=== PATIENT | female | born 1935 | race Caucasian/White ===

== ENCOUNTER → 2017-01-18 | Outpatient (CLI) | payer OTHER ==
[~2017-01-18] MED LIST: IBUP200C10 PO; MULT-775 OR; PANT40TA2 PO; SUCR1TAB38 OR; TRIA75TA55 PO
[2017-01-18 08:58] LABS: Urine RBC None Seen /hpf (0 - 4)
[2017-01-18 09:11] LABS: Urine Bilirubin Negative (Negative); Urine Blood Negative /uL (Negative); Urine Color Yellow (Yellow); Urine Glucose Normal (Normal); Urine Ketone Negative (Negative); Urine Nitrite Negative (Negative); Urine Squamous Epithelial Cell FEW /hpf (<5); Urine Urobilinogen Normal (Negative)
[2017-01-18 09:14] LABS: Basophils # (auto) 0 uL; Basophils % (auto) 0.4 % (0.0-2.0); Eosinophils # (auto) 0.2 uL; Eosinophils % (auto) 4.2 % (0.0-7.0); Hematocrit 39.6 % (36.0-46.0); Hemoglobin 13.5 g/dL (12.2-16.2); Lymphocytes # (auto) 1.5 uL; Lymphocytes % (auto) 28.9 % (10.0-50.0); Mean Corpuscular Hemoglobin 30.2 pg (28.0-32.0); Mean Corpuscular Hgb Conc. 34.2 g/dL (32.0-36.0); Mean Corpuscular Volume 88.3 fL (80.0-100.0); Mean Platelet Volume 7.8 fL (7.4-10.4); Monocytes # (auto) 0.3 uL; Monocytes % (auto) 6.4 % (0.0-12.0); Neutrophils # (auto) 3.1 uL; Neutrophils % (auto) 60.1 % (37.0-80.0); Platelet Count (auto) 275 10^3/uL (140-450); Red Cell Distribution Width 13.9 % (11.6-16.0); White Blood Cell 5.2 10^3/uL (4.4-10.8)
[2017-01-18 09:27] LABS: Albumin 3.4 g/dL (3.4-5.0); Calcium 8.7 mg/dL (8.5-10.1); Potassium 4.3 mmol/L (3.5-5.1); Total Protein 6.4 g/dL (6.4-8.2)
== END | disposition home or self-care (01) ==
LOC: LAB 08:19
PROVIDERS: ATTEND Internal Medicine
DX: E55.9 Vitamin D deficiency, unspecified (principal); I10 Essential (primary) hypertension; E78.2 Mixed hyperlipidemia
CPT/HCPCS: 36415; 80053; 80061; 81001; 82306; 84443; 85025

== ENCOUNTER → 2017-05-30 | Outpatient (CLI) | payer OTHER ==
[2017-05-31 09:16] LABS: Temperature: 22.2 C (20.0-25.0)
== END | disposition home or self-care (01) ==
LOC: LAB 08:27
PROVIDERS: ATTEND Psychiatry & Neurology Neurology
DX: M79.604 Pain in right leg (principal); R20.2 Paresthesia of skin
CPT/HCPCS: 36415; 82607; 82746; 82951; 84155; 84165

== ENCOUNTER → 2017-09-30 | Outpatient (CLI) | payer OTHER ==
[2017-09-30 08:28] LABS: Basophils # (auto) 0.1 uL; Eosinophils # (auto) 0.1 uL; Eosinophils % (auto) 2.2 % (0.0-7.0); Hematocrit 40.6 % (36.0-46.0); Lymphocytes # (auto) 1.4 uL; Lymphocytes % (auto) 21.6 % (10.0-50.0); Mean Corpuscular Hemoglobin 31.7 pg (28.0-32.0); Mean Corpuscular Hgb Conc. 34.5 g/dL (32.0-36.0); Mean Corpuscular Volume 91.8 fL (80.0-100.0); Mean Platelet Volume 7.8 fL (6.9-10.8); Monocytes # (auto) 0.4 uL; Monocytes % (auto) 6.5 % (0.0-12.0); Neutrophils # (auto) 4.6 uL; Neutrophils % (auto) 68.7 % (37.0-80.0); Platelet Count (auto) 242 10^3/uL (140-450); Red Cell Distribution Width 12.4 % (11.8-14.3); White Blood Cell 6.7 10^3/uL (4.4-10.8)
[2017-09-30 10:33] LABS: Albumin 3.6 g/dL (3.4-5.0); BUN/Creatinine Ratio 32.9; Bilirubin, Total 0.6 mg/dL (0.2-1.0); Calcium 8.9 mg/dL (8.5-10.1); Total Protein 7.1 g/dL (6.4-8.2)
== END | disposition home or self-care (01) ==
LOC: LAB 07:17
PROVIDERS: ATTEND Physician Assistant
DX: Z01.818 Encounter for other preprocedural examination (principal)
CPT/HCPCS: 36415; 80053; 85025

== ENCOUNTER → 2018-01-04 | Outpatient (CLI) | payer OTHER ==
[~2018-01-04] MED LIST changes: +IBUP1CAP5 PO; -IBUP200C10 PO
== END | disposition home or self-care (01) ==
LOC: RT 08:41
PROVIDERS: ATTEND Internal Medicine Pulmonary Disease
DX: J43.9 Emphysema, unspecified (principal)
CPT/HCPCS: 94010

== ENCOUNTER → 2018-01-20 | Outpatient (CLI) | payer OTHER ==
[2018-01-20 09:19] LABS: Basophils # (auto) 0 uL; Basophils % (auto) 0.2 % (0.0-2.0); Eosinophils # (auto) 0.2 uL; Eosinophils % (auto) 2.7 % (0.0-7.0); Hemoglobin 14.5 g/dL (12.2-16.2); Lymphocytes # (auto) 1.4 uL; Lymphocytes % (auto) 25.1 % (10.0-50.0); Mean Corpuscular Hemoglobin 31.4 pg (28.0-32.0); Mean Corpuscular Hgb Conc. 34.6 g/dL (32.0-36.0); Mean Corpuscular Volume 90.7 fL (80.0-100.0); Monocytes # (auto) 0.4 uL; Monocytes % (auto) 6.6 % (0.0-12.0); Neutrophils # (auto) 3.7 uL; Neutrophils % (auto) 65.4 % (37.0-80.0); Nucleated Red Blood Cells % 0.1 %; Platelet Count (auto) 228 10^3/uL (140-450); Red Blood Cells 4.63 10^6/uL (4.0-5.20); Red Cell Distribution Width 13.5 % (11.8-14.3); White Blood Cell 5.6 10^3/uL (4.4-10.8)
[2018-01-20 10:21] LABS: BUN/Creatinine Ratio 35.6; Bilirubin, Total 0.7 mg/dL (0.2-1.0); Calcium 8.8 mg/dL (8.5-10.1); Potassium 4.3 mmol/L (3.5-5.1); Total Protein 7.6 g/dL (6.4-8.2)
== END | disposition home or self-care (01) ==
LOC: LAB 08:58
PROVIDERS: ATTEND Physician Assistant
DX: I11.9 Hypertensive heart disease without heart failure (principal); E53.8 Deficiency of other specified B group vitamins; E78.5 Hyperlipidemia, unspecified; E55.9 Vitamin D deficiency, unspecified; E78.4 Other hyperlipidemia
CPT/HCPCS: 36415; 80053; 80061; 82306; 82607; 85025

== ENCOUNTER → 2018-03-21 | Outpatient (CLI) | payer OTHER | END | disposition home or self-care (01) | LOC: LAB 12:22 | PROVIDERS: ATTEND Physician Assistant | DX: D22.5 Melanocytic nevi of trunk (principal); L82.1 Other seborrheic keratosis; D22.62 Melanocytic nevi of left upper limb, including shoulder; I11.9 Hypertensive heart disease without heart failure; E78.5 Hyperlipidemia, unspecified; J43.9 Emphysema, unspecified; E78.00 Pure hypercholesterolemia, unspecified; I12.9 Hypertensive chronic kidney disease with stage 1 through stage 4 chronic kidney disease, or unspecified chronic kidney disease; N18.2 Chronic kidney disease, stage 2 (mild) ==

== ENCOUNTER → 2018-06-20 | Outpatient (CLI) | payer OTHER | END | disposition home or self-care (01) | LOC: LAB 14:14 | PROVIDERS: ATTEND Specialist | DX: N83.291 Other ovarian cyst, right side (principal); R59.9 Enlarged lymph nodes, unspecified; I11.9 Hypertensive heart disease without heart failure; E78.5 Hyperlipidemia, unspecified; E55.9 Vitamin D deficiency, unspecified; I10 Essential (primary) hypertension; Z88.6 Allergy status to analgesic agent | CPT/HCPCS: 82378; 86301; 86304 ==

== ENCOUNTER → 2018-06-23 | Outpatient (CLI) | payer OTHER | END | disposition home or self-care (01) | LOC: LAB 13:58 | PROVIDERS: ATTEND Specialist | DX: R10.9 Unspecified abdominal pain (principal); R10.2 Pelvic and perineal pain | CPT/HCPCS: 36415; 82565; 84520 ==

== ENCOUNTER 2018-07-08 18:05 | Emergency (ER) | payer OTHER ==
[~2018-07-08] VITALS: Ht 154.9 cm; Wt 48.1 kg
[2018-07-08 18:17] VITALS: BP 101/81
[2018-07-08 19:22] LABS: Basophils # (auto) 0 uL; Basophils % (auto) 0.6 % (0.0-2.0); Eosinophils # (auto) 0 uL; Eosinophils % (auto) 0.2 % (0.0-7.0); Hematocrit 38.9 % (36.0-46.0); Hemoglobin 13.5 g/dL (12.2-16.2); Lymphocytes # (auto) 0.4 uL; Lymphocytes % (auto) 7.6 % (10.0-50.0); Mean Corpuscular Hemoglobin 31.7 pg (28.0-32.0); Mean Corpuscular Hgb Conc. 34.8 g/dL (32.0-36.0); Mean Corpuscular Volume 90.8 fL (80.0-100.0); Monocytes # (auto) 0.2 uL; Monocytes % (auto) 4.2 % (0.0-12.0); Neutrophils # (auto) 4.9 uL; Neutrophils % (auto) 87.4 % (37.0-80.0); Nucleated Red Blood Cells % 0.1 %; Platelet Count (auto) 161 10^3/uL (140-450); Red Blood Cells 4.28 10^6/uL (4.0-5.20); Red Cell Distribution Width 12.7 % (11.8-14.3); White Blood Cell 5.6 10^3/uL (4.4-10.8)
[2018-07-08 19:32] LABS: Urine Bacteria FEW /hpf (None Seen); Urine Blood Negative /uL (Negative); Urine Hyaline Cast FEW /lpf (0 - 2); Urine Mucus FEW (None Seen); Urine Specific Gravity 1.023 (1.001-1.035); Urine WBC 2 /hpf (0 - 5)
[2018-07-08 19:41] LABS: Alanine Aminotransferase 25 U/L (13-56); Albumin 3.4 g/dL (3.4-5.0); Alkaline Phosphatase 87 U/L (45-117); Anion Gap 7 (5-15); Aspartate Aminotransferase 22 U/L (15-37); BUN/Creatinine Ratio 15.7; Bilirubin, Total 1.3 mg/dL (0.2-1.0); Blood Urea Nitrogen 16 mg/dL (7-18); Carbon Dioxide 23 mmol/L (21-32); Chloride 104 mmol/L (98-107); GFR African American 67 mL/min; GFR Non-African American 55 mL/min; Glucose 86 mg/dL (74-106); Magnesium 2.5 mg/dL (1.6-2.6); Potassium 3.8 mmol/L (3.5-5.1); Sodium 134 mmol/L (136-145); Total Protein 6.8 g/dL (6.4-8.2)
== END 2018-07-09 01:15 | disposition left against medical advice (07) ==
LOC: ER 18:07
DX: R50.9 Fever, unspecified (principal); R53.1 Weakness; R30.0 Dysuria; Z53.21 Procedure and treatment not carried out due to patient leaving prior to being seen by health care provider
CPT/HCPCS: 36415; 71046; 80053; 81001; 83735; 84484; 85025; 87086; 93005

== ENCOUNTER → 2018-07-18 | Outpatient (CLI) | payer OTHER | END | disposition home or self-care (01) | LOC: LAB 15:00 | PROVIDERS: ATTEND Physician Assistant | DX: C44.92 Squamous cell carcinoma of skin, unspecified (principal) ==

== ENCOUNTER 2018-11-01 06:19 | Inpatient (IN) | payer OTHER | END 2018-11-04 13:35 | disposition home or self-care (01) | LOC: SUR 06:19 → EAST 11:51 → TELE-EAST 11-02 08:50 → EAST 11-02 15:22 | PROC: 0WQF0ZZ Repair Abdominal Wall, Open Approach (ICD-10-PCS; principal; 2018-11-01 07:35) | DX: K43.2 Incisional hernia without obstruction or gangrene (principal); G93.40 Encephalopathy, unspecified; I10 Essential (primary) hypertension ==

== ENCOUNTER → 2019-01-05 | Outpatient (CLI) | payer OTHER ==
[~2019-01-05] MED LIST changes: -IBUP1CAP5 PO; +METO25TA62 PO; +MULT-688 PO; -MULT-775 OR
[2019-01-05 08:25] LABS: Basophils # (auto) 0.1 uL; Basophils % (auto) 1.1 % (0.0-2.0); Eosinophils # (auto) 0.1 uL; Eosinophils % (auto) 2.7 % (0.0-7.0); Hematocrit 38.5 % (36.0-46.0); Hemoglobin 13.2 g/dL (12.2-16.2); Lymphocytes # (auto) 1.4 uL; Lymphocytes % (auto) 26.1 % (10.0-50.0); Mean Corpuscular Hemoglobin 30.8 pg (28.0-32.0); Mean Corpuscular Hgb Conc. 34.2 g/dL (32.0-36.0); Mean Corpuscular Volume 90.1 fL (80.0-100.0); Monocytes # (auto) 0.4 uL; Monocytes % (auto) 6.6 % (0.0-12.0); Neutrophils # (auto) 3.5 uL; Neutrophils % (auto) 63.5 % (37.0-80.0); Platelet Count (auto) 194 10^3/uL (140-450); Red Blood Cells 4.27 10^6/uL (4.0-5.20); Red Cell Distribution Width 13.7 % (11.8-14.3); White Blood Cell 5.5 10^3/uL (4.4-10.8)
[2019-01-05 09:03] LABS: Albumin 3.4 g/dL (3.4-5.0)
[2019-01-05 09:15] LABS: BUN/Creatinine Ratio 32.5; Bilirubin, Total 0.5 mg/dL (0.2-1.0); Calcium 8.5 mg/dL (8.5-10.1); Total Protein 6.6 g/dL (6.4-8.2)
== END | disposition home or self-care (01) ==
LOC: LAB 07:58
PROVIDERS: ATTEND Physician Assistant
DX: Z00.00 Encounter for general adult medical examination without abnormal findings (principal); I11.9 Hypertensive heart disease without heart failure; E78.5 Hyperlipidemia, unspecified; E53.8 Deficiency of other specified B group vitamins; E55.9 Vitamin D deficiency, unspecified; R21 Rash and other nonspecific skin eruption
CPT/HCPCS: 36415; 80053; 80061; 82306; 82607; 85025

== ENCOUNTER → 2019-04-24 | Outpatient (CLI) | payer OTHER | END | disposition home or self-care (01) | LOC: XY 10:14 | PROVIDERS: ATTEND Internal Medicine | DX: R01.1 Cardiac murmur, unspecified (principal) | CPT/HCPCS: 93886 ==

== ENCOUNTER → 2019-11-23 | Outpatient (CLI) | payer OTHER ==
[~2019-11-23] MED LIST changes: -METO25TA62 PO; +METO25TA93 PO
[2019-11-23 14:48] LABS: Basophils # (auto) 0.1 uL; Eosinophils # (auto) 0.1 uL; Eosinophils % (auto) 2.2 % (0.0-7.0); Hematocrit 39.9 % (36.0-46.0); Hemoglobin 13.9 g/dL (12.2-16.2); Lymphocytes # (auto) 1.9 uL; Lymphocytes % (auto) 31.3 % (10.0-50.0); Mean Corpuscular Hemoglobin 31.7 pg (28.0-32.0); Mean Corpuscular Hgb Conc. 34.7 g/dL (32.0-36.0); Mean Corpuscular Volume 91.3 fL (80.0-100.0); Monocytes # (auto) 0.4 uL; Neutrophils # (auto) 3.5 uL; Neutrophils % (auto) 58.5 % (37.0-80.0); Platelet Count (auto) 231 10^3/uL (140-450); Red Blood Cells 4.37 10^6/uL (4.0-5.20); Red Cell Distribution Width 12.5 % (11.8-14.3); White Blood Cell 5.9 10^3/uL (4.4-10.8)
[2019-11-23 15:09] LABS: Cholesterol 235 mg/dL (< 200); HDL Cholesterol 75 mg/dL (40-59); LDL Cholesterol 137 mg/dL (< 100); Triglycerides 92 mg/dL (< 150)
== END | disposition home or self-care (01) ==
LOC: LAB 14:31
PROVIDERS: ATTEND Physician Assistant
DX: J44.9 Chronic obstructive pulmonary disease, unspecified (principal); I10 Essential (primary) hypertension; E78.5 Hyperlipidemia, unspecified; E55.9 Vitamin D deficiency, unspecified
CPT/HCPCS: 36415; 80061; 82306; 85025

== ENCOUNTER → 2020-02-05 | Outpatient (CLI) | payer OTHER | END | disposition home or self-care (01) | LOC: LAB 15:00 | PROVIDERS: ATTEND Physician Assistant | DX: D22.9 Melanocytic nevi, unspecified (principal) ==

== ENCOUNTER 2020-05-04 17:15 | Inpatient (IN) | payer OTHER ==
[~2020-05-04] VITALS: Ht 152.4 cm; Wt 41.0 kg
[2020-05-04 19:07] LABS: Basophils # (auto) 0 10 ^3/uL (0-0.2); Basophils % (auto) 0.3 % (0.0-2.0); Eosinophils # (auto) 0.2 10 ^3/uL (0-0.8); Eosinophils % (auto) 1.4 % (0.0-7.0); Hematocrit 35.9 % (36.0-46.0); Hemoglobin 12.5 g/dL (12.2-16.2); Lymphocytes # (auto) 0.3 10 ^3/uL (0.4-5.4); Lymphocytes % (auto) 3.1 % (10.0-50.0); Mean Corpuscular Hemoglobin 31.2 pg (28.0-32.0); Mean Corpuscular Hgb Conc. 34.8 g/dL (32.0-36.0); Mean Corpuscular Volume 89.6 fL (80.0-100.0); Monocytes # (auto) 0.5 10 ^3/uL (0-1.3); Monocytes % (auto) 4.4 % (0.0-12.0); Neutrophils # (auto) 10.1 10 ^3/uL (1.6-8.6); Neutrophils % (auto) 90.8 % (37.0-80.0); Platelet Count (auto) 164 10^3/uL (140-450); White Blood Cell 11.1 10^3/uL (4.4-10.8)
[2020-05-04 19:26] LABS: Albumin 3.1 g/dL (3.4-5.0); BUN/Creatinine Ratio 28.6; Calcium 8.1 mg/dL (8.5-10.1); Potassium 3.6 mmol/L (3.5-5.1)
[2020-05-04 19:29] LABS: Bilirubin, Total 1.6 mg/dL (0.2-1.0); Total Protein 6.6 g/dL (6.4-8.2)
[2020-05-05] MEDS ORDERED: ONDANSETRON HCL 4 MG/2 ML VIAL IV PRN (00:30)
[2020-05-05] MEDS ORDERED: HYDROcodone-ACET 5/325MG TAB PO PRN (00:30)
[2020-05-05] MEDS ORDERED: ACETAMINOPHEN 325 MG TAB PO PRN (00:30)
[2020-05-05] MEDS ORDERED: DOCUSATE SOD 100 MG CAP PO PRN (00:30)
[2020-05-05 03:17] VITALS: BP 121/96
[2020-05-05] MEDS ORDERED: ALBUTEROL SULF HFA 90MCG INH 200DOSE IN SCH (06:00)
[2020-05-05] MEDS: CHOLECALCIFEROL (VITD3) 1,000IU=25mCg TAB PO SCH (07:44)
[2020-05-05] MEDS: SUCRALFATE 1 GM TAB PO SCH ×2 (07:44→22:00)
[2020-05-05] MEDS: ASCORBIC ACID 1,000 MG TAB PO SCH (07:44)
[2020-05-05] MEDS: PANTOPRAZOLE 40 MG TAB PO SCH (07:44)
[2020-05-05] MEDS: DOXYCYCLINE 100 MG TAB/CAP PO SCH ×2 (07:44→22:00)
[2020-05-05] MEDS: ENOXAPARIN SOD 40 MG/0.4 ML SYRINGE SC SCH (07:44)
[2020-05-05] MEDS: METOPROLOL SUCCINATE XL 50 MG TAB PO SCH (07:44)
[2020-05-05] MEDS: ZINC SULFATE 220mg CAP or TAB PO SCH (08:38)
[2020-05-05 09:14] LABS: Urine Bacteria FEW /hpf (None Seen); Urine Blood Negative /uL (Negative); Urine Specific Gravity 1.015 (1.001-1.035); Urine WBC 4 /hpf (0 - 5)
[2020-05-05] MEDS ORDERED: TRIAMTERENE/HCTZ 75/50MG TABLET PO SCH (10:00)
--- NOTE | 2020-05-05 10:32 | NUR ---
Telemetry admit from ER NEALALESSANDRA admitted to Telemetry unit after SBAR received. Patient oriented to CULLEN ELLIOTTRN primary RN, unit, room, bed, and unit policies regarding patient care and visiting hours. Patient now on continuous telemetry monitoring, tele box #[id number] and telemetry reading on arrival to unit is sr 74. Patient placed on bedside oxygen, weighed by bedscale and encouraged to call if they need something. All questions and concerns addressed, patient verbalized understanding. Note:
[2020-05-05 11:00] VITALS: BP 132/51
[2020-05-05 13:00] VITALS: BP 132/51
[2020-05-05 17:43] VITALS: BP 111/44
--- NOTE | 2020-05-05 20:00 | NUR ---
Opening Shift Note Assumed care of patient, awake and alert. No S/S of distress/SOB or pain. Instructed on POC and to call for assist PRN, will continue to monitor for changes Q1hr and PRN.
[2020-05-05 21:50] VITALS: BP 131/71
[2020-05-06 05:00] VITALS: BP 134/71
[2020-05-06 06:40] LABS: Basophils # (auto) 0.1 10 ^3/uL (0-0.2); Basophils % (auto) 1.1 % (0.0-2.0); Eosinophils # (auto) 0.3 10 ^3/uL (0-0.8); Eosinophils % (auto) 5.4 % (0.0-7.0); Hematocrit 37.2 % (36.0-46.0); Hemoglobin 13.1 g/dL (12.2-16.2); Lymphocytes # (auto) 1.5 10 ^3/uL (0.4-5.4); Lymphocytes % (auto) 23.9 % (10.0-50.0); Mean Corpuscular Hemoglobin 31.4 pg (28.0-32.0); Mean Corpuscular Hgb Conc. 35.1 g/dL (32.0-36.0); Mean Corpuscular Volume 89.3 fL (80.0-100.0); Monocytes # (auto) 0.6 10 ^3/uL (0-1.3); Monocytes % (auto) 9.2 % (0.0-12.0); Neutrophils # (auto) 3.8 10 ^3/uL (1.6-8.6); Neutrophils % (auto) 60.4 % (37.0-80.0); Nucleated Red Blood Cells % 0.2 %; Platelet Count (auto) 218 10^3/uL (140-450); Red Blood Cells 4.16 10^6/uL (4.0-5.20); Red Cell Distribution Width 12.6 % (11.8-14.3); White Blood Cell 6.3 10^3/uL (4.4-10.8)
[2020-05-06 07:04] LABS: Potassium 3.9 mmol/L (3.5-5.1)
[2020-05-06 07:29] LABS: Albumin 2.9 g/dL (3.4-5.0); BUN/Creatinine Ratio 36.1; Bilirubin, Total 0.6 mg/dL (0.2-1.0); Calcium 8.9 mg/dL (8.5-10.1); Total Protein 6.5 g/dL (6.4-8.2)
--- NOTE | 2020-05-06 07:30 | NUR ---
Opening Shift Note Assumed care of patient, awake, alert, and oriented. No S/S of distress/SOB or pain. Bed in lowest/locked position, bed rails up x2, call light within reach. Instructed on POC and to call for assist PRN. Will continue to monitor for changes Q1hr and PRN.
[2020-05-06 09:00] VITALS: BP 109/66
[2020-05-06] MEDS: ASCORBIC ACID 1,000 MG TAB PO SCH (09:29)
[2020-05-06] MEDS: ZINC SULFATE 220mg CAP or TAB PO SCH ×2 (09:29→09:43)
[2020-05-06] MEDS: CHOLECALCIFEROL (VITD3) 1,000IU=25mCg TAB PO SCH (09:41)
[2020-05-06] MEDS: PANTOPRAZOLE 40 MG TAB PO SCH (09:42)
[2020-05-06] MEDS: SUCRALFATE 1 GM TAB PO SCH (09:42)
[2020-05-06] MEDS: METOPROLOL SUCCINATE XL 50 MG TAB PO SCH (09:42)
[2020-05-06] MEDS: ENOXAPARIN SOD 40 MG/0.4 ML SYRINGE SC SCH (09:43)
[2020-05-06] MEDS: DOXYCYCLINE 100 MG TAB/CAP PO SCH (09:43)
[2020-05-06 10:50] VITALS: BP 151/66
--- NOTE | 2020-05-06 11:00 | NUR ---
RECEIVED PATIENT AFTER REPORT RECEIVED FROM LADY DOE. PATIENT TOLERATED WELL. NO S/S OF SOB OR DISTRESS. PATIENT PLACED ON 2L OF OXYGEN VIA N/C. PATIENT DENIES HAVING ANY PAIN. BED IN LOWEST AND LOCKED POSITION WITH SIDE RAILS UP X2 AND CALL LIGHT IN REACH.
[2020-05-06 12:35] VITALS: BP 138/63
[2020-05-06] MEDS ORDERED: DOXY-286 PO (15:10)
[2020-05-06 15:55] VITALS: BP 151/66
[2020-05-06 16:00] VITALS: BP 117/56
--- NOTE | 2020-05-06 16:45 | NUR ---
Discharge instructions given as ordered. Encourage to follow up with PMD as instructed. All questions and concerns addressed. Patient verbalized understanding. Medication reconciliation form completed and copy given to patient. No Home medications held in Pharmacy. Pt refused vaccines. IV removed with catheter intact, pressure dressing applied. Patient taken to waiting room, per patient request. Patient stated, "I want to wait in the waiting room so that I can see my when he gets here".Patient left with all personal belongings, accompanied by staff. No distress noted at time of departure.
[2020-05-07] MEDS ORDERED: ASCORBIC ACID 500 MG TAB PO SCH (10:00)
== END 2020-05-06 16:45 | disposition home or self-care (01) | DRG 871 ==
LOC: ER 17:15 → TELE 17:16 → TELE-EAST 05-05 11:29 → EAST 05-06 10:12 → WEST WING 05-06 11:12
PROVIDERS: ADMIT Hospitalist; ATTEND Internal Medicine
DX: A41.9 Sepsis, unspecified organism (principal); J18.9 Pneumonia, unspecified organism; Z03.818 Encounter for observation for suspected exposure to other biological agents ruled out; R73.9 Hyperglycemia, unspecified; I10 Essential (primary) hypertension; K21.9 Gastro-esophageal reflux disease without esophagitis; E78.5 Hyperlipidemia, unspecified
CPT/HCPCS: 36415; 71045; 71250; 74176; 80053; 81001; 83036; 83605; 83735; 85025; 87040; 87070; 87086; 87804; 87880; 93005; 96372; G0378

== ENCOUNTER → 2020-10-13 | Day surgery (SDC) | payer OTHER ==
[~2020-10-13] VITALS: Ht 152.4 cm; Wt 36.7 kg
[~2020-10-13] MED LIST changes: +ACETAMINOPHEN 500 MG TAB PO PRN; +ANGIOMAX 250 MG VIAL IV ONE; +ASPirin 325 MG TAB PO ONE; +ASPirin 81 mg TAB PO SCH; +ASPirin-EC 81 mg tab PO SCH; +ATORVASTATIN 20 MG TAB PO SCH; +DOCUSATE SOD 100 MG CAP PO SCH; +DOXY-286 PO; +EPINEPHrine HCL 1 MG/10 ML SYRG IV ONE; +HEPARIN DRIP/D5W 100UNITS/ML 250 ML IV SCH; +HEPARIN SODIUM (PORCINE) 5000 UNITS/ML 1ML VIAL IV ONE; +HEPARIN SODIUM (PORCINE) 5000 UNITS/ML 1ML VIAL ONE; +IODIXANOL 320MG/ML 100ML BTL IV ONE; +IOHEXOL 300 MG/ML 100ML BOTTLE IJ ONE; +IOHEXOL 350 MG/ML 100ML IJ ONE; +LIDOCAINE 2%HCL (LOCAL ANESTH.) INJ 20ML MDV ONE; +MIDAZOLAM HCL 1MG/1ML-2 ML VIAL ONE; +MORPHINE SULF INJ 2 MG/ML SYRINGE 1ML IV ONE; +MORPHINE SULF INJ 2 MG/ML SYRINGE 1ML IV PRN; +NITROGLYCERIN 0.4 MG SL TAB SL PRN; +NOREPINEPHRINE 8 MG/250ML KIT 0 ML IV ONE; +NOREPINEPHRINE 8 MG/250ML KIT 250 ML IV SCH; +ONDANSETRON HCL 4 MG/2 ML VIAL IV ONE; +ONDANSETRON HCL 4 MG/2 ML VIAL IV PRN; +PANTOPRAZOLE 40 MG/10 ML VIAL INJ IV SCH; +SODIUM BICARBONATE 8.4% INJ 50ML SYRINGE IV ONE; +SODIUM CHL 0.9% 0 ML ONE; +SODIUM CHLORIDE 0.9% 1,000 ML IV ONE; +SUCR1TAB22 OR; -SUCR1TAB38 OR; +fentaNYL CITRATE 100 MCG/2 ML VL ONE
[2020-10-13 08:58] LABS: Basophils # (auto) 0 10 ^3/uL (0-0.2); Basophils % (auto) 0.1 % (0.0-2.0); Eosinophils # (auto) 0 10 ^3/uL (0-0.8); Eosinophils % (auto) 0.1 % (0.0-7.0); Hematocrit 43.4 % (36.0-46.0); Hemoglobin 14.9 g/dL (12.2-16.2); Lymphocytes # (auto) 0.8 10 ^3/uL (0.4-5.4); Lymphocytes % (auto) 6.9 % (10.0-50.0); Mean Corpuscular Hgb Conc. 34.2 g/dL (32.0-36.0); Mean Corpuscular Volume 90.6 fL (80.0-100.0); Monocytes # (auto) 0.3 10 ^3/uL (0-1.3); Monocytes % (auto) 2.6 % (0.0-12.0); Neutrophils # (auto) 10.3 10 ^3/uL (1.6-8.6); Neutrophils % (auto) 90.3 % (37.0-80.0); Platelet Count (auto) 374 10^3/uL (140-450); Red Cell Distribution Width 12.8 % (11.8-14.3); White Blood Cell 11.4 10^3/uL (4.4-10.8)
[2020-10-13 09:19] LABS: Albumin 3.1 g/dL (3.4-5.0); Calcium 8.9 mg/dL (8.5-10.1)
[2020-10-13 09:22] LABS: Lactic Acid w/Reflex 3.2 mmol/L (0.4-2.0)
[2020-10-13 09:24] LABS: BUN/Creatinine Ratio 55.2; Bilirubin, Total 2.8 mg/dL (0.2-1.0); Total Protein 7.2 g/dL (6.4-8.2)
[2020-10-13 09:26] LABS: INR 1.1 (0.9-1.15); Partial Thromboplastin Time 20.5 sec (23.0-31.2)
[2020-10-13] MEDS: SODIUM CHLORIDE 0.9% 1,000 ML IV SCH ×2 (13:30→16:51)
[2020-10-13 15:00] VITALS: BP 97/65
[2020-10-13 17:17] LABS: CRP High Sensitivity 14.1 mg/dL (< 0.3)
== END | disposition home or self-care (01) ==
LOC: EDBD 07:56 → EDUNIT# 07:56 → ER 07:56 → CATH 07:57 → ER 09:13
PROVIDERS: ATTEND Specialist
DX: I25.10 Atherosclerotic heart disease of native coronary artery without angina pectoris (principal); I70.211 Atherosclerosis of native arteries of extremities with intermittent claudication, right leg; I10 Essential (primary) hypertension; K44.9 Diaphragmatic hernia without obstruction or gangrene; Z20.828 Contact with and (suspected) exposure to other viral communicable diseases; Z98.890 Other specified postprocedural states; Z79.899 Other long term (current) drug therapy; Z80.2 Family history of malignant neoplasm of other respiratory and intrathoracic organs
CPT/HCPCS: 36246; 36415; 71045; 71260; 74177; 75710; 80053; 80061; 83605; 83690; 84484; 85025; 85610; 85730; 86141; 86850; 86900; 86901; 87040; 87426; 92950; 93005; 93306; 93458; 96361; 96374; 96375; 99291; C1760; C1769; C1887; C1894; C9803; J0171; J1644; J2270; J2405; J3010; J7030; Q9967; U0003; 99152; 99153; J2250